=== PATIENT | female | born 2000 | race Two or more races ===

== ENCOUNTER 2021-09-29 14:04 | Emergency (ER) | payer MEDICAID ==
[~2021-09-29] VITALS: Ht 165.1 cm; Wt 48.5 kg
[2021-09-29 15:06] LABS: Albumin 4.3 g/dL (3.4-5.0); Calcium 8.9 mg/dL (8.5-10.1); Potassium 3.9 mmol/L (3.5-5.1)
[2021-09-29 15:08] LABS: Basophils # (auto) 0 10 ^3/uL (0-0.2); Eosinophils # (auto) 0 10 ^3/uL (0-0.8); Hematocrit 40.4 % (36.0-46.0); Hemoglobin 13.4 g/dL (12.2-16.2); Lymphocytes # (auto) 0.4 10 ^3/uL (0.4-5.4); Mean Corpuscular Hemoglobin 26.8 pg (28.0-32.0); Neutrophils # (auto) 3.2 10 ^3/uL (1.6-8.6); Nucleated Red Blood Cells % 0.1 %
[2021-09-29 15:10] LABS: BUN/Creatinine Ratio 7.8; Bilirubin, Total 0.3 mg/dL (0.2-1.0); Total Protein 7.9 g/dL (6.4-8.2)
[2021-09-29 15:11] LABS: Basophils % (auto) 0.3 % (0.0-2.0); Eosinophils % (auto) 0.1 % (0.0-7.0); Lymphocytes % (auto) 9.6 % (10.0-50.0); Mean Corpuscular Hgb Conc. 33.3 g/dL (32.0-36.0); Mean Corpuscular Volume 80.5 fL (80.0-100.0); Monocytes # (auto) 0.5 10 ^3/uL (0-1.3); Monocytes % (auto) 11.6 % (0.0-12.0); Neutrophils % (auto) 78.4 % (37.0-80.0); Red Blood Cells 5.01 10^6/uL (4.0-5.20); Red Cell Distribution Width 13.9 % (11.8-14.3); White Blood Cell 4.1 10^3/uL (4.4-10.8)
[2021-09-29] MEDS ORDERED: IOHEXOL 300 MG/ML 100ML BOTTLE IJ ONE (15:22)
[2021-09-29 15:28] LABS: Urine Bacteria FEW /hpf (None Seen); Urine Blood Negative /uL (Negative); Urine Mucus FEW (None Seen); Urine Specific Gravity 1.037 (1.001-1.035); Urine WBC 3 /hpf (0 - 5)
[2021-09-29] MEDS ORDERED: MORPHINE SULFATE INJECTION 2 MG/ML SYRG IV ONE (16:15)
[2021-09-29] MEDS ORDERED: ONDANSETRON HCL 4 MG/2 ML VIAL IV ONE (16:15)
[2021-09-29 18:10] VITALS: BP 108/72
== END 2021-09-29 18:14 | disposition home or self-care (01) ==
LOC: ER 14:04
DX: R10.31 Right lower quadrant pain (principal); R19.7 Diarrhea, unspecified; R51.9 Headache, unspecified; Z32.02 Encounter for pregnancy test, result negative; Z20.822 Contact with and (suspected) exposure to COVID-19
CPT/HCPCS: 36415; 74177; 80053; 81001; 81025; 83690; 85025; 87426; 96374; 96375; 99284; J2270; J2405; Q9967

== ENCOUNTER → 2022-01-13 | Outpatient (CLI) | payer MEDICAID ==
[2022-01-13 12:41] LABS: Basophils # (auto) 0.1 10 ^3/uL (0-0.2); Basophils % (auto) 0.9 % (0.0-2.0); Eosinophils # (auto) 0.1 10 ^3/uL (0-0.8); Hematocrit 39.8 % (36.0-46.0); Hemoglobin 13.4 g/dL (12.2-16.2); Lymphocytes # (auto) 1.7 10 ^3/uL (0.4-5.4); Lymphocytes % (auto) 26.5 % (10.0-50.0); Mean Corpuscular Hemoglobin 27.4 pg (28.0-32.0); Mean Corpuscular Hgb Conc. 33.7 g/dL (32.0-36.0); Mean Corpuscular Volume 81.2 fL (80.0-100.0); Monocytes # (auto) 0.3 10 ^3/uL (0-1.3); Monocytes % (auto) 4.3 % (0.0-12.0); Neutrophils # (auto) 4.4 10 ^3/uL (1.6-8.6); Neutrophils % (auto) 67.3 % (37.0-80.0); Nucleated Red Blood Cells % 0.1 %; Red Cell Distribution Width 13.5 % (11.8-14.3); White Blood Cell 6.5 10^3/uL (4.4-10.8)
[2022-01-13 13:02] LABS: Urine Bacteria NONE SEEN /hpf (None Seen); Urine Blood Negative /uL (Negative); Urine Mucus FEW (None Seen); Urine Specific Gravity 1.028 (1.001-1.035); Urine WBC <1 /hpf (0 - 5)
[2022-01-13 13:19] LABS: Albumin 4.2 g/dL (3.4-5.0); Calcium 9.1 mg/dL (8.5-10.1); Potassium 3.6 mmol/L (3.5-5.1)
[2022-01-13 13:25] LABS: Bilirubin, Total 0.5 mg/dL (0.2-1.0); Total Protein 7.8 g/dL (6.4-8.2)
== END | disposition home or self-care (01) ==
LOC: LAB 12:02
PROVIDERS: ATTEND Student in an Organized Health Care Education/Training Program
DX: R00.2 Palpitations (principal); F41.0 Panic disorder [episodic paroxysmal anxiety]
CPT/HCPCS: 36415; 80053; 80061; 81001; 84439; 84443; 85025

== ENCOUNTER → 2022-05-21 | Outpatient (CLI) | payer MEDICAID | END | disposition home or self-care (01) | LOC: XYW 11:13 | PROVIDERS: ATTEND Internal Medicine | DX: R42 Dizziness and giddiness (principal) | CPT/HCPCS: 93306 ==

== ENCOUNTER → 2022-10-27 | Outpatient (CLI) | payer MEDICAID ==
[2022-10-27 10:30] LABS: Urine Bacteria FEW /hpf (None Seen); Urine Blood Negative /uL (Negative); Urine Hyaline Cast FEW /lpf (0 - 2); Urine Mucus FEW (None Seen); Urine Specific Gravity 1.024 (1.001-1.035); Urine WBC 1 /hpf (0 - 5)
[2022-10-27 10:56] LABS: Potassium 3.9 mmol/L (3.5-5.1)
[2022-10-27 11:38] LABS: Basophils # (auto) 0.1 10 ^3/uL (0-0.2); Basophils % (auto) 1.1 % (0.0-2.0); Eosinophils # (auto) 0.5 10 ^3/uL (0-0.8); Hemoglobin 13.1 g/dL (12.2-16.2); Lymphocytes # (auto) 1.6 10 ^3/uL (0.4-5.4); Lymphocytes % (auto) 27.8 % (10.0-50.0); Mean Corpuscular Hemoglobin 27.8 pg (28.0-32.0); Mean Corpuscular Hgb Conc. 33.5 g/dL (32.0-36.0); Mean Corpuscular Volume 83.2 fL (80.0-100.0); Monocytes # (auto) 0.3 10 ^3/uL (0-1.3); Monocytes % (auto) 5.1 % (0.0-12.0); Neutrophils # (auto) 3.3 10 ^3/uL (1.6-8.6); Nucleated Red Blood Cells % 0.1 %; Red Blood Cells 4.69 10^6/uL (4.0-5.20); Red Cell Distribution Width 14.1 % (11.8-14.3); White Blood Cell 5.8 10^3/uL (4.4-10.8)
[2022-10-27 15:35] LABS: Albumin 3.8 g/dL (3.4-5.0); BUN/Creatinine Ratio 11.3; Bilirubin, Total 0.4 mg/dL (0.2-1.0); Calcium 8.3 mg/dL (8.5-10.1); Total Protein 7.1 g/dL (6.4-8.2)
== END | disposition home or self-care (01) ==
LOC: LAB 09:06
PROVIDERS: ATTEND Student in an Organized Health Care Education/Training Program
DX: E55.9 Vitamin D deficiency, unspecified (principal); R73.9 Hyperglycemia, unspecified; R03.0 Elevated blood-pressure reading, without diagnosis of hypertension
CPT/HCPCS: 36415; 80053; 80061; 81001; 82306; 83036; 84443; 85025

== ENCOUNTER 2024-02-05 15:13 | Emergency (ER) | payer MEDICAID ==
[~2024-02-05] VITALS: Ht 165.1 cm; Wt 48.1 kg
[~2024-02-05 15:13] MED LIST: LEVO500T91 PO; METR-344 PO; PANT40TA2 PO; SUCR1TAB31 OR
[2024-02-05] MEDS: ALBUTEROL SULF 2.5 MG/0.5ML(0.5%) NEB SOLN NEB ONE (16:46)
[2024-02-05] MEDS: IPRATROPIUM BROM 0.5 MG/2.5ML INH SOL NEB ONE (16:46)
[2024-02-05 16:51] VITALS: RESP 16; O2SAT 97
[2024-02-05] MEDS: SODIUM CHLORIDE 0.9% 250 ML IV ONE (17:03)
[2024-02-05] MEDS: AZITHROMYCIN 500MG/ 250ML 250 ML IV ONE (17:03)
[2024-02-05 17:08] LABS: Basophils # (auto) 0.1 10 ^3/uL (0-0.2); Basophils % (auto) 0.5 % (0.0-2.0); Eosinophils # (auto) 0.5 10 ^3/uL (0-0.8); Eosinophils % (auto) 4.9 % (0.0-7.0); Hematocrit 43.3 % (36.0-46.0); Hemoglobin 14.3 g/dL (12.2-16.2); Lymphocytes # (auto) 1.1 10 ^3/uL (0.4-5.4); Lymphocytes % (auto) 10.6 % (10.0-50.0); Mean Corpuscular Hemoglobin 27.7 pg (28.0-32.0); Mean Corpuscular Volume 83.8 fL (80.0-100.0); Monocytes # (auto) 0.6 10 ^3/uL (0-1.3); Monocytes % (auto) 5.1 % (0.0-12.0); Neutrophils # (auto) 8.6 10 ^3/uL (1.6-8.6); Neutrophils % (auto) 78.9 % (37.0-80.0); Red Blood Cells 5.17 10^6/uL (4.0-5.20); Red Cell Distribution Width 13.5 % (11.8-14.3); White Blood Cell 10.8 10^3/uL (4.4-10.8)
[2024-02-05 17:20] LABS: Chloride 108 mmol/L (98-107); Potassium 3.5 mmol/L (3.5-5.1); Sodium 140 mmol/L (136-145)
[2024-02-05 17:21] LABS: Anion Gap 8 (5-15); Calcium 10.7 mg/dL (8.7-10.4); Carbon Dioxide 24 mmol/L (20-30)
[2024-02-05 17:26] LABS: BUN/Creatinine Ratio 7.2 (10.0-20.0); Blood Urea Nitrogen 6 mg/dL (9-23); Glucose 104 mg/dL (74-106)
[2024-02-05 17:27] LABS: Magnesium 2.1 mg/dL (1.6-2.6)
[2024-02-05] MEDS ORDERED: ZOFR4T PO (17:48)
[2024-02-05] MEDS ORDERED: PRED20TA2 PO (17:48)
[2024-02-05] MEDS ORDERED: AZIT500T PO (17:48)
[2024-02-05] MEDS ORDERED: ALBUAER3 IN (17:48)
[2024-02-05] MEDS: ONDANSETRON HCL 4 MG/2 ML VIAL IV ONE (17:52)
[2024-02-05 19:32] VITALS: BP 120/62; PULSE 71; RESP 17; TEMP 98.1; O2SAT 100
== END 2024-02-05 19:33 | disposition home or self-care (01) ==
LOC: ER 15:13
DX: J45.901 Unspecified asthma with (acute) exacerbation (principal); Z79.899 Other long term (current) drug therapy
CPT/HCPCS: 36415; 71046; 80048; 83735; 85025; 94640; 96365; 96366; 96375; 99284; J0456; J2405; J7644

== ENCOUNTER → 2024-09-11 | Outpatient (CLI) | payer MEDICAID ==
[~2024-09-11] MED LIST changes: +ALBUAER3 IN; +AZIT500T PO; +PRED20TA2 PO; +ZOFR4T PO
[2024-09-11 12:11] LABS: Urine Bacteria MANY /hpf (None Seen); Urine Blood Negative /uL (Negative); Urine Clarity Turbid (Clear); Urine Color Yellow (Yellow); Urine Mucus FEW (None Seen); Urine Protein, UAD TRACE (Negative); Urine Specific Gravity 1.033 (1.001-1.035); Urine Urobilinogen Normal (Negative); Urine WBC 12 /hpf (0 - 5); Urine pH 5.5 (5.0-9.0)
[2024-09-11 12:32] LABS: Basophils # (auto) 0.1 10 ^3/uL (0-0.2); Eosinophils # (auto) 0.4 10 ^3/uL (0-0.8); Eosinophils % (auto) 6.2 % (0.0-7.0); Hematocrit 42.4 % (36.0-46.0); Lymphocytes # (auto) 1.9 10 ^3/uL (0.4-5.4); Lymphocytes % (auto) 26.8 % (10.0-50.0); Mean Corpuscular Hemoglobin 27.8 pg (28.0-32.0); Mean Corpuscular Hgb Conc. 33.1 g/dL (32.0-36.0); Mean Corpuscular Volume 84.1 fL (80.0-100.0); Monocytes # (auto) 0.4 10 ^3/uL (0-1.3); Monocytes % (auto) 5.5 % (0.0-12.0); Neutrophils # (auto) 4.3 10 ^3/uL (1.6-8.6); Neutrophils % (auto) 60.5 % (37.0-80.0); Nucleated Red Blood Cells % 0.1 %; Platelet Count (auto) 361 10^3/uL (140-450); Red Blood Cells 5.04 10^6/uL (4.0-5.20); Red Cell Distribution Width 13.7 % (11.8-14.3); White Blood Cell 7.1 10^3/uL (4.4-10.8)
[2024-09-11 12:40] LABS: Albumin 4.7 g/dL (3.2-4.8); Alkaline Phosphatase 58 U/L (46-116); Anion Gap 10 (5-15); Bilirubin, Total 0.5 mg/dL (0.2-1.0); Blood Urea Nitrogen 10 mg/dL (9-23); Calcium 10.3 mg/dL (8.7-10.4); Carbon Dioxide 25 mmol/L (20-31); Chloride 106 mmol/L (98-107); Cholesterol 163 mg/dL (< 200); Glucose 89 mg/dL (74-106); LDL Cholesterol 69 mg/dL (< 100); Potassium 3.9 mmol/L (3.5-5.1); Sodium 141 mmol/L (136-145); Triglycerides 59 mg/dL (< 150)
[2024-09-11 12:42] LABS: Total Protein 7.8 g/dL (5.7-8.2)
[2024-09-11 12:44] LABS: Alanine Aminotransferase < 9 U/L (7-40); Aspartate Aminotransferase 12 U/L (13-40); HDL Cholesterol 78 mg/dL (40-59)
[2024-09-12 08:06] LABS: Immunoglobulin A 329 mg/dL (87-352)
== END | disposition home or self-care (01) ==
LOC: LAB 11:27
PROVIDERS: ATTEND Student in an Organized Health Care Education/Training Program
DX: R19.7 Diarrhea, unspecified (principal); R73.9 Hyperglycemia, unspecified; R03.0 Elevated blood-pressure reading, without diagnosis of hypertension; E55.9 Vitamin D deficiency, unspecified
CPT/HCPCS: 36415; 80053; 80061; 81001; 82306; 82784; 83036; 83516; 84443; 85025; 86255

== ENCOUNTER 2025-04-17 15:03 | Emergency (ER) | payer MEDICAID ==
[~2025-04-17] VITALS: Ht 165.1 cm; Wt 54.5 kg
[~2025-04-17 15:03] MED LIST changes: +AUG875T PO
--- NOTE | 2025-04-17 15:23 | ED.PDOC ---
GI ASSESSMENT HPI Comments A 24 year-old female, with a PMHX of Gastritis and a social history of MJ, presents to the ED via EMS with a chief complaint of diffuse abdominal pain with associated N/V as of X2 hours ago. Patient reports recent MJ usage. Patient reports abdominal pain happening X2 times before, with Gastritis as the diagnoses last ED visit. Patient has no further complaints at this time and otherwise denies further associated symptoms of fever, chills, dysuria, hematuria, dizziness, or headache. 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, Medications, Allergies Allergies: Coded Allergies: No Known Drug Allergy (Verified Allergy, Unknown, 09/29/21) Home Meds Active Scripts Amoxicillin & Pot Clavulanate (AUGMENTIN TABLET) 875 Mg Tb, 875 MG PO BID for 7 Days, #14 TAB Prov:ELVIRA ROSE MD 09/13/24 Albuterol Sulfate (VENTOLIN MDI) 90 Mcg Ih, 90 MCG IN TID for 10 Days, #1 INH Prov:JERRY BAIRES MD 02/05/24 Ondansetron Odt 4MG Tab (ZOFRAN PO) 4 Mg Tb, 4 MG PO TID for 5 Days, #15 TAB ODT TAB-DISSOLVE IN MOUTH, THEN SWALLOW Prov:JERRY BAIRES MD 02/05/24 Prednisone (Prednisone) 20 Mg Tab, 20 MG PO BID for 5 Days, #10 MG Prov:JERRY BAIRES MD 02/05/24 Azithromycin (Zithromax) 500 Mg Tab, 1 TAB PO DAILY for 5 Days, #5 TAB Prov:JERRY BAIRES MD 02/05/24 Metronidazole (Flagyl) 500 Mg Tab, 500 MG PO TID for 5 Days, #15 TAB Prov:ELVIRA ROSE MD 12/18/23 Levofloxacin Hemihydrate (LEVAQUIN 500 MG) 500 Mg Tab, 500 MG PO DAILY for 5 Days, #5 TAB Prov:ELVIRA ROSE MD 12/18/23 Sucralfate (CARAFATE) 1 Gm Tab, 1 GM OR TID for 30 Days, #90 TAB Prov:ELVIRA ROSE MD 12/18/23 Pantoprazole Sodium Sesquihydr (Protonix) 40 Mg Tab, 40 MG PO BID for 30 Days, #60 TAB Prov:ELVIRA ROSE MD 12/18/23 Information Source: Patient, Emergency Med Personnel Mode of Arrival: EMS Timing: Minutes Duration: Since onset Prehospital treatment: Accucheck (96), Treatment Severity: Moderate Pain Location: Diffuse Associated sign and symptoms: Nausea, Vomiting, Abdominal Pain Past Medical History PAST MEDICAL HISTORY: UTI'S Past Medical History (Other): Gastritis Surgical History: Denies all surgeries DIGITAL ASSISTANT History: Denies all DIGITAL ASSISTANT Hx Family History Family History: Reviewed,noncontributory to illness Social History Smoker: Other (Vape ) Alcohol: Denies ETOH Use Drugs: Marijuana Lives In: Home Constitutional: denies: chills, diaphoresis, fatigue, fever, malaise, sweats, weakness, others EENTM: denies: blurred vision, double vision, ear bleeding, ear discharge, ear drainage, ear pain, ear ringing, eye pain, eye redness, hearing loss, mouth pain, mouth swelling, nasal discharge, nose bleeding, nose congestion, nose pain, photophobia, tearing, throat pain, throat swelling, voice changes, others Respiratory: denies: cough, hemoptysis, orthopnea, SOB at rest, shortness of breath, SOB with excertion, stridor, wheezing, others Cardiovascular: denies: chest pain, dizzy spells, diaphoresis, Dyspnea on exertion, edema, irregular heart beat, left arm pain, lightheadedness, palpitations, PND, syncope, others Gastrointestinal: reports: abdominal pain, nausea, vomiting; denies: abdomen di stended, blood streaked bowels, constipated, diarrhea, dysphagia, difficulty swallowing, hematemesis, melena, poor appetite, poor fluid intake, rectal bleeding, rectal pain, others Genitourinary: denies: abnormal vagina bleeding, burning, dyspareunia, dysuria, flank pain, frequency, hematuria, incontinence, pain, , vagina discharge, urgency, others Neurological: denies: dizziness, fainting, headache, left sided numbness, left sided weakness, numbness, paresthesia, pre-existing deficit, right sided numbness, right sided weakness, seizure, speech problems, tingling, tremors, weakness, others Musculoskeletal: denies: back pain, gout, joint pain, joint swelling, muscle pain, muscle stiffness, neck pain, others Integumetry: denies: bruises, change in color, change in hair/nails, dryness, laceration, lesions, lumps, rash, wounds, others Allergic/Immunocompromised: denies: Difficulty Healing, Frequent Infections, Hives, Itching, others Hematologic/Lymphatic: denies: anemia, blood clots, easy bleeding, easy bruising, swollen glands, others Endocrine: denies: excessive hunger, excessive sweating, excessive thirst, excessive urination, flushing, intolerance to cold, intolerance to heat, unexplained weight gain, unexplained weight loss, others Psychiatric: denies: anxiety, bipolar disorder, depression, hopeless, panic disorder, schizophrenia, sleepless, suicidal, others All Other Systems: Reviewed and Negative Physical Exam General Appearance: Moderate Distress HEENT: Normal ENT Inspection, Pharynx Normal, TMs Normal Neck: Full Range of Motion, Non-Tender, Normal, Normal Inspection Respiratory: Chest Non-Tender, Lungs Clear, No Accessory Muscle Use, No Respiratory Distress, Normal Breath Sounds Cardiovascular: No Edema, No JVD, No Murmur, No Gallop, Normal Peripheral Pulses, Regular Rate/Rhythm Breast Exam: Deferred Gastrointestinal: Epigastric, No Organomegaly, No Pulsatile Mass, Normal Bowel Sounds, Soft, Tenderness Genitalia: Deferred Pelvic: Deferred Rectal: Deferred Extremities: No calf tenderness, Normal capillary refill, Normal inspection, Normal range of motion, Non-tender, No pedal edema Musculoskeletal : Apperance: Normal Neurologic: Alert, bisque tile burner II-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 Was a procedure done?: No GI differential Dx Differential Diagnosis: Cholecystitis, Gastroenteritis, UTI, Dehydration, Diabetes/ DKA, Bacterial, Parasitic, Viral X-Ray, Labs, Meds, VS Vital Signs Date Time Temp Pulse Resp B/P (MAP) Pulse Ox O2 Delivery O2 Flow Rate FiO2 04/17/25 18:02 80 13 99/64 (76) 98 04/17/25 17:14 100 18 97 Room Air* 0 21 04/17/25 17:00 98 20 104/35 (58) 98 04/17/25 15:56 97.8 60 22 98/51 (67) 100 97.8 04/17/25 15:56 60 22 100 Room Air 04/17/25 15:10 97.0 100 20 140/110 100 97.0 Lab Test 04/17/25 15:34 Range/Units White Blood Count 11.4 H 4.4-10.8 10^3/uL Red Blood Count 4.81 4.0-5.20 10^6/uL Hemoglobin 13.5 12.2-16.2 g/dL Hematocrit 40.0 36.0-46.0 % Mean Corpuscular Volume 83.2 80.0-100.0 fL Mean Corpuscular Hemoglobin 28.1 28.0-32.0 pg Mean Corpuscular Hemoglobin Concent 33.8 32.0-36.0 g/dL Red Cell Distribution Width 13.4 11.8-14.3 % Platelet Count 304 140-450 10^3/uL Mean Platelet Volume 9.1 6.9-10.8 fL Neutrophils (%) (Auto) 87.6 H 37.0-80.0 % Lymphocytes (%) (Auto) 8.2 L 10.0-50.0 % Monocytes (%) (Auto) 2.5 0.0-12.0 % Eosinophils (%) (Auto) 1.0 0.0-7.0 % Basophils (%) (Auto) 0.7 0.0-2.0 % Neutrophils # (Auto) 10.0 H 1.6-8.6 10 ^3/uL Lymphocytes # (Auto) 0.9 0.4-5.4 10 ^3/uL Monocytes # (Auto) 0.3 0-1.3 10 ^3/uL Eosinophils # (Auto) 0.1 0-0.8 10 ^3/uL Basophils # (Auto) 0.1 0-0.2 10 ^3/uL Nucleated Red Blood Cells 0.0 % Sodium Level 144 136-145 mmol/L Potassium Level 3.2 L 3.5-5.1 mmol/L Chloride Level 111 H 98-107 mmol/L Carbon Dioxide Level 18 L 20-31 mmol/L Anion Gap 15 5-15 Blood Urea Nitrogen 8 L 9-23 mg/dL Creatinine 0.83 0.550-1.02 mg/dL Glomerular Filtration Rate Calc 102 >90 mL/min BUN/Creatinine Ratio 9.6 L 10.0-20.0 Serum Glucose 105 74-106 mg/dL Calcium Level 8.9 8.7-10.4 mg/dL Total Bilirubin 1.0 0.2-1.0 mg/dL Aspartate Amino Transferase (AST) 19 13-40 U/L Alanine Aminotransferase (ALT) 12 7-40 U/L Alkaline Phosphatase 44 L 46-116 U/L Total Protein 6.6 5.7-8.2 g/dL Albumin 4.3 3.2-4.8 g/dL Lipase 31 12-53 U/L Current Medications Medications (Trade) Dose Ordered Sig/Marquise Route Start Time Stop Time Status Last Admin Sodium Chloride 1,000 ml @ 1,000 mls/hr Q1H ONCE IVB 04/17/25 15:30 04/17/25 16:29 DC 04/17/25 16:06 Pantoprazole Sodium (Protonix) 40 mg ONCE ONCE IV 04/17/25 15:30 04/17/25 15:31 DC 04/17/25 16:06 Prochlorperazine Edisylate (Compazine Inj) 10 mg ONCE ONCE IV 04/17/25 15:30 04/17/25 15:31 DC 04/17/25 16:06 Sodium Chloride 1,000 ml @ 1,000 mls/hr Q1H ONCE IV 04/17/25 17:00 04/17/25 17:59 DC 04/17/25 17:16 IV Hep-Lock was established The patient was given a 1 L bolus of normal saline The patient was still somewhat hypotensive so we did repeat another bolus of normal saline The CBC shows a white blood cell count of 11.4 which is most likely consistent with the vomiting The rest of the CBC is within normal limits The chemistry panel is within normal limits The patient was given Protonix 40 mg IV push The patient was given Compazine 10 mg IV push for the vomiting At this time we did re-evaluate the patient and she states she feels much better and would like to go home The patient is being discharged at this time The patient will return to the emergency department's condition worsens The patient was given substance use counseling Time of 1ST Reevaluation: 15:38 Reevaluation 1ST: Unchanged Time of 2ND Reevaluation: 18:06 Reevaluation 2ND: Improved Patient Education/Counseling: Diagnosis, Treatment, Prognosis, Need For Follow Up Family Education/Counseling: Diagnosis, Treatment, Prognosis, Need For Follow Up SEPSIS Sepsis Screen Physician Orders Heplock Iv (04/17/25 15:21) Urinalysis (04/17/25 15:46) Drug Screen (04/17/25 15:59) Test, Urine (04/17/25 16:06) Vital Signs Date Time Temp Pulse Resp B/P (MAP) Pulse Ox O2 Delivery O2 Flow Rate FiO2 04/17/25 18:02 80 13 99/64 (76) 98 04/17/25 17:14 100 18 97 Room Air* 0 21 04/17/25 17:00 98 20 104/35 (58) 98 04/17/25 15:56 97.8 60 22 98/51 (67) 100 97.8 04/17/25 15:56 60 22 100 Room Air 04/17/25 15:10 97.0 100 20 140/110 100 97.0 Laboratory Tests Test 04/17/25 15:34 White Blood Count 11.4 10^3/uL (4.4-10.8) H Medications Medications Dose Ordered Sig/Marquise Route Start Time Stop Time Status Last Admin Dose Admin Pantoprazole Sodium 40 mg ONCE ONCE IV 04/17/25 15:30 04/17/25 15:31 DC 04/17/25 16:06 Prochlorperazine Edisylate 10 mg ONCE ONCE IV 04/17/25 15:30 04/17/25 15:31 DC 04/17/25 16:06 Sodium Chloride 1,000 ml @ 1,000 mls/hr Q1H ONCE IV 04/17/25 17:00 04/17/25 17:59 DC 04/17/25 17:16 Sodium Chloride 1,000 ml @ 1,000 mls/hr Q1H ONCE IVB 04/17/25 15:30 04/17/25 16:29 DC 04/17/25 16:06 Departure 1 Departure Time of Disposition: 18:07 Impression: Primary Impression: Cannabinoid hyperemesis syndrome Disposition: 01 HOME / SELF CARE / HOMELESS Condition: Fair Discharged With: Self Critical Care Note Critical Care Time?: No Stability Stability form required: No Heart Score Heart Score: Heart Score Response (Comments) Value History N/A 0 EKG N/A 0 Age N/A 0 Risk Factors N/A 0 Troponin N/A 0 Total 0 I personally scribed for WILLOW SHARP MD ([email or web address]) on 04/17/25 at 15:23. Electronically submitted by Gianna Bashir ([employer]). I personally scribed for WILLOW SHARP MD ([email or web address]) on 04/17/25 at 15:46. Electronically submitted by Gianna Bashir ([employer]). WILLOW SHARP MD Apr 17, 2025 15:23
[2025-04-17] MEDS ORDERED: MORPHINE SULFATE INJ 2 MG/ml SYRG IV ONE (15:30)
[2025-04-17 15:42] LABS: Hematocrit 40.0 % (36.0-46.0); Hemoglobin 13.5 g/dL (12.2-16.2); Mean Corpuscular Hemoglobin 28.1 pg (28.0-32.0); Mean Corpuscular Volume 83.2 fL (80.0-100.0); Nucleated Red Blood Cells % 0.0 %
[2025-04-17 15:56] VITALS: TEMP 97.8
[2025-04-17 16:01] LABS: Alanine Aminotransferase 12 U/L (7-40); Albumin 4.3 g/dL (3.2-4.8); Anion Gap 15 (5-15); BUN/Creatinine Ratio 9.6 (10.0-20.0); Calcium 8.9 mg/dL (8.7-10.4); Glucose 105 mg/dL (74-106); Lipase 31 U/L (12-53); Sodium 144 mmol/L (136-145); Total Protein 6.6 g/dL (5.7-8.2)
[2025-04-17 16:02] LABS: Alkaline Phosphatase 44 U/L (46-116); Bilirubin, Total 1.0 mg/dL (0.2-1.0); Blood Urea Nitrogen 8 mg/dL (9-23); Carbon Dioxide 18 mmol/L (20-31); Chloride 111 mmol/L (98-107); Potassium 3.2 mmol/L (3.5-5.1)
[2025-04-17] MEDS: PANTOPRAZOLE 40 MG/10 ML VIAL INJ IV ONE (16:06)
[2025-04-17] MEDS: PROCHLORPERAZINE EDISYLATE 5 MG/ML 2ML VIAL IV ONE (16:06)
[2025-04-17] MEDS: SODIUM CHLORIDE 0.9% 1,000 ML IVB ONE (16:06)
[2025-04-17] MEDS: KETOROLAC TROMETH 30 MG/ML 1ML VIAL IV ONE (16:15)
[2025-04-17 17:14] VITALS: PULSE 100; RESP 18; O2SAT 97
[2025-04-17] MEDS: SODIUM CHLORIDE 0.9% 1,000 ML IV ONE (17:16)
[2025-04-17 18:02] VITALS: BP 99/64; PULSE 80; RESP 13; O2SAT 98
== END 2025-04-17 18:20 | disposition home or self-care (01) ==
LOC: EDBD 15:03 → ER 15:03 → EDUNIT# 15:03 → ER 18:20
DX: R11.2 Nausea with vomiting, unspecified (principal); F17.290 Nicotine dependence, other tobacco product, uncomplicated; F12.90 Cannabis use, unspecified, uncomplicated; Z87.440 Personal history of urinary (tract) infections; Z87.19 Personal history of other diseases of the digestive system; Z79.899 Other long term (current) drug therapy; Z79.52 Long term (current) use of systemic steroids
CPT/HCPCS: 36415; 80053; 83690; 85025; 96361; 96374; 96375; 99285; J0780; J2470; J7030